=== PATIENT | female | born 1995 | race Caucasian/White ===

== ENCOUNTER 2018-10-21 08:13 | Emergency (ER) | payer BC, OTHER ==
[~2018-10-21] VITALS: Ht 175.3 cm; Wt 100.3 kg
--- NOTE | 2018-10-21 08:50 | NUR ---
LOOP PULLER: PT TO ROOM FROM LOBBY
--- NOTE | 2018-10-21 08:55 | NUR ---
ASSUMED CARE AT THIS TIME. PT. IS A & O X 4 WITH C/O A 2 MONTH HX OF MANN PAIN WHICH SHE STATES SHE HAS BEEN SEEN IN THE ER FOR AND HAD AN MRA DONE. PT. STATES THE RESULTS WERE NORMAL. PT. STATES SHE WAS ALSO SEEN AT URGENT CARE FOR THE SAME AND SPINAL TAP WAS DONE WHICH RESULTS WERE NORMAL STATED BY HER. PT. 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 PT.'S PUPILS ARE PERRLA. LUNGS ARE CTA. HAND GRASPS ARE EQUAL AND STRONG. DP'S ARE EQUAL AND STRONG. PT. IS PINK, WARM AND DRY. ABD. IS SOFT AND NON-TENDER WITH BS + X 4 QUADS. PT. PULSES ARE +2 THROUGHOUT. IV ACCESS ESTABLISHED. PT. MEDICATED ORDERED. SIDERAILS REMAIN UP X [address]
[2018-10-21] MEDS ORDERED: METOCLOPRAMIDE 5 MG/ML, 2ML IVPush ONE (09:30)
[2018-10-21] MEDS ORDERED: KETOROLAC 30 MG/1 ML IVPush ONE (09:30)
[2018-10-21] MEDS ORDERED: SODIUM CHLORIDE 0.9% 1,000ML IVBOLUS ONE (09:30)
[2018-10-21] MEDS ORDERED: DIPHENHYDRAMINE 50 MG/ML, 1ML IVPush ONE (09:30)
[2018-10-21] MEDS ORDERED: SODIUM CHLORIDE FLUSH 10ML SYR IVF ONE (09:30)
[2018-10-21] MEDS ORDERED: KETOROLAC 30 MG/1 ML ONE (09:43)
[2018-10-21] MEDS ORDERED: DIPHENHYDRAMINE 50 MG/ML, 1ML ONE (09:43)
[2018-10-21] MEDS ORDERED: METOCLOPRAMIDE 5 MG/ML, 2ML ONE (09:44)
--- NOTE | 2018-10-21 09:51 | NUR ---
PT. STATES HER PAIN DECREASED FROM A 10 TO A 7 AFTER THE MEDICATIONS FOR PAIN WERE GIVEN, SEE MAR. PT. IS RESTING WITH THE HOB ELEVATED GREATER THAN 30 DEGREES. PT.'S PCXR WAS DONE AND LABS WERE OBTAINED FROM THE PT.'S IV START. PT. IS RESTING WITH THE BP CUFF AND PULSE OX IN PLACE. PT. IS IN A POSITION OF COMFORT. LIGHTS DIMMED. SIDERAILS REMAIN UP X 2 WITH THE CALL LIGHT IN REACH. VSS. PT. REPORT WAS GIVEN TO RAHUL NELSON.
[2018-10-21 09:57] LABS: BASOPHILS # (AUTO) 0.03 x10^3/uL (0-0.1); BASOPHILS % (AUTO) 1 % (0-1); EOSINOPHILS # (AUTO) 0.04 x10^3/uL (0-0.4); EOSINOPHILS % (AUTO) 1 % (1-7); LYMPHOCYTES # (AUTO) 1.11 x10^3/uL (1-3.4); LYMPHOCYTES % (AUTO) 23 % (22-44); MD NO; MEAN CORPUSCULAR HEMOGLOBIN 29.1 pg (27.0-34.8); MEAN CORPUSCULAR HGB CONC 32.4 g/dL (32.4-35.8); MEAN PLATELET VOLUME 13.4 fL (7.4-10.4); MONOCYTES # (AUTO) 0.68 x10^3/uL (0.2-0.8); MONOCYTES % (AUTO) 14 % (2-9); NEUTROPHILS # (AUTO) 2.92 x10^3/uL (1.8-6.8); NEUTROPHILS % (AUTO) 61 % (42-75); PLATELET COUNT 127 x10^3/uL (130-400); RED BLOOD COUNT 4.72 x10^6/uL (3.82-5.3); RED CELL DISTRIBUTION WIDTH 13.3 % (9.6-15.2)
[2018-10-21 10:09] LABS: ALBUMIN 3.7 g/dL (3.4-5.0); ANION GAP 5 mmol/L (5-15); CALCIUM 8.4 mg/dL (8.5-10.1); CHLORIDE 112 mmol/L (98-107); CREATININE 0.75 mg/dL (0.55-1.02)
[2018-10-21 10:35] LABS: MICROSCOPIC NOT IND
[2018-10-21 10:38] LABS: ALANINE AMINOTRANSFERASE 55 U/L (12-78); ALKALINE PHOSPHATASE 76 U/L (45-117); BILIRUBIN,TOTAL 0.2 mg/dL (0.2-1.0); TOTAL PROTEIN 7.8 g/dL (6.4-8.2)
[2018-10-21 10:43] LABS: CULTURE INDICATED? NO
[2018-10-21 11:22] VITALS: BP 102/53
--- NOTE | 2018-10-21 11:22 | NUR ---
MANN IMPROVED SINCE MEDICATED FOR SAME AND TOLERATING PO CHALLENGE
[2018-10-21] MEDS ORDERED: DEXAMETHASONE 4 MG/ML, 1ML ONE (11:26)
[2018-10-21] MEDS ORDERED: DEXAMETHASONE 4 MG/ML, 1ML IVPush ONE (11:30)
== END 2018-10-21 12:32 | disposition home or self-care (01) ==
LOC: ED 10:05
DX: G89.29 Other chronic pain (principal); R51 Headache; R42 Dizziness and giddiness
CPT/HCPCS: 36415; 71045; 80053; 81003; 84703; 85025; 93005; 96361; 96374; 96375; 99284; J1100; J1200; J1885; J2765; J7030

== ENCOUNTER 2019-12-25 01:37 | Emergency (ER) | payer BC, OTHER ==
[~2019-12-25] VITALS: Ht 177.8 cm; Wt 105.0 kg
[2019-12-25] MEDS ORDERED: SERT100T32 PO (01:45)
--- NOTE | 2019-12-25 01:46 | NUR ---
pt ambulated back to room with a smooth and steady gait.
--- NOTE | 2019-12-25 01:55 | NUR ---
24/. Abd pain, nausea, diarrhea x3 since yesterday around 1600. Denies vomiting. Denies drug use. Upper abd pain.
--- NOTE | 2019-12-25 01:57 | NUR ---
Pt unable to urinate at this time.
[2019-12-25] MEDS ORDERED: MORPHINE SULFATE 4 MG/ML, 1ML ONE ×2 (02:00→03:38)
[2019-12-25] MEDS ORDERED: ONDANSETRON 2MG/ML, 2ML IVPush ONE (02:00)
[2019-12-25] MEDS ORDERED: ONDANSETRON 2MG/ML, 2ML ONE (02:00)
[2019-12-25] MEDS: MORPHINE SULFATE 4 MG/ML, 1ML IVPush PRN ×2 (02:06→03:40)
[2019-12-25 02:10] LABS: MEAN CORPUSCULAR HEMOGLOBIN 25.6 pg (27.0-34.8); MEAN CORPUSCULAR HGB CONC 31.6 g/dL (32.4-35.8); MEAN PLATELET VOLUME 12.9 fL (7.4-10.4); PLATELET COUNT 134 x10^3/uL (130-400); RED BLOOD COUNT 4.71 x10^6/uL (3.82-5.3)
[2019-12-25 02:21] LABS: ALANINE AMINOTRANSFERASE 44 U/L (12-78); ALBUMIN 3.3 g/dL (3.4-5.0); ANION GAP 8 mmol/L (5-15); CALCIUM 8.2 mg/dL (8.5-10.1); CHLORIDE 106 mmol/L (98-107); CREATININE 1.05 mg/dL (0.55-1.02)
[2019-12-25 02:26] LABS: ALKALINE PHOSPHATASE 74 U/L (45-117); BILIRUBIN,TOTAL 0.5 mg/dL (0.2-1.0); TOTAL PROTEIN 7.4 g/dL (6.4-8.2)
[2019-12-25 02:47] LABS: BASOPHILS # (AUTO) 0.01 x10^3/uL (0-0.1); BASOPHILS % (AUTO) 0 % (0-1); EOSINOPHILS # (AUTO) 0.03 x10^3/uL (0-0.4); EOSINOPHILS % (AUTO) 0 % (1-7); LYMPHOCYTES # (AUTO) 1.24 x10^3/uL (1-3.4); LYMPHOCYTES % (AUTO) 12 % (22-44); MD SCAN; MONOCYTES % (AUTO) 5 % (2-9); NEUTROPHILS # (AUTO) 8.34 x10^3/uL (1.8-6.8); NEUTROPHILS % (AUTO) 83 % (42-75)
--- NOTE | 2019-12-25 02:47 | NUR ---
Pt pain improved to 5/10 after pain medications. Pt will call when she can provide a urine sample.
--- NOTE | 2019-12-25 03:36 | NUR ---
pt medicated per mar for pain. pt nad, no other changes in condition. vss. wctm.
[2019-12-25 04:08] VITALS: BP 123/77
--- NOTE | 2019-12-25 04:09 | NUR ---
task rn: Patient given discharge instructions and they have confirmed that they understand the instructions. Patient ambulatory with steady gait. provided work note per request, nad, denies additional needs or questions at this time. no pt belongings left in room after dc.
== END 2019-12-25 04:10 | disposition home or self-care (01) ==
LOC: ED 02:45
DX: R10.31 Right lower quadrant pain (principal); R10.32 Left lower quadrant pain; R10.13 Epigastric pain; R19.7 Diarrhea, unspecified; R11.0 Nausea
CPT/HCPCS: 36415; 76700; 80053; 83690; 84703; 85025; 96374; 96375; 96376; 99284; J2270; J2405

== ENCOUNTER 2020-01-04 17:43 | Emergency (ER) | payer OTHER ==
[~2020-01-04] VITALS: Ht 177.8 cm; Wt 105.3 kg
[~2020-01-04 17:43] MED LIST: SERT100T32 PO
[2020-01-04] MEDS ORDERED: MORPHINE SULFATE 4 MG/ML, 1ML ONE (18:25)
[2020-01-04] MEDS ORDERED: ONDANSETRON 2MG/ML, 2ML ONE (18:25)
[2020-01-04] MEDS ORDERED: ONDANSETRON 2MG/ML, 2ML IVPush ONE (18:30)
[2020-01-04] MEDS ORDERED: MORPHINE SULFATE 4 MG/ML, 1ML IVPush PRN (18:30)
[2020-01-04] MEDS ORDERED: SODIUM CHLORIDE FLUSH 10ML SYR IVF ONE (18:30)
--- NOTE | 2020-01-04 18:40 | NUR ---
to ed from home rlq abd pain worse on palp seen her x3. pa in room, meds per mar, piv, labs and ua to lab. vss call diallo in reach. as
[2020-01-04 18:59] LABS: ALBUMIN 2.8 g/dL (3.4-5.0); ANION GAP 6 mmol/L (5-15); CALCIUM 7.9 mg/dL (8.5-10.1); CHLORIDE 108 mmol/L (98-107)
[2020-01-04 19:00] LABS: MICROSCOPIC AUTO
[2020-01-04 19:07] LABS: ALKALINE PHOSPHATASE 80 U/L (45-117); BILIRUBIN,TOTAL 0.2 mg/dL (0.2-1.0); CREATININE 0.91 mg/dL (0.55-1.02)
[2020-01-04 19:09] LABS: BASOPHILS % (AUTO) 1 % (0-1); EOSINOPHILS % (AUTO) 1 % (1-7); LYMPHOCYTES % (AUTO) 20 % (22-44); MEAN CORPUSCULAR HEMOGLOBIN 26.9 pg (27.0-34.8); MEAN CORPUSCULAR HGB CONC 34.2 g/dL (32.4-35.8); MONOCYTES % (AUTO) 5 % (2-9); NEUTROPHILS % (AUTO) 73 % (42-75); PLATELET COUNT 297 x10^3/uL (130-400); RED BLOOD COUNT 4.28 x10^6/uL (3.82-5.3); RED CELL DISTRIBUTION WIDTH 16.7 % (9.6-15.2)
[2020-01-04 19:21] VITALS: BP 99/62
[2020-01-04 19:22] LABS: MD NO
--- NOTE | 2020-01-04 19:22 | NUR ---
still c/o pain but bp marginal, explained to pt, aware. labs pending. as
[2020-01-04 20:22] LABS: ALANINE AMINOTRANSFERASE 43 U/L (12-78)
[2020-01-04 20:23] LABS: TOTAL PROTEIN 7.6 g/dL (6.4-8.2)
== END 2020-01-04 20:28 | disposition home or self-care (01) ==
LOC: ED 18:17
DX: N30.00 Acute cystitis without hematuria (principal)
CPT/HCPCS: 36415; 80053; 81001; 83690; 84703; 85025; 87086; 96374; 96375; 99284; J2270; J2405

== ENCOUNTER → 2020-01-07 | Outpatient (CLI) | payer OTHER ==
[~2020-01-07] MED LIST changes: +SINCALIDE (KINEVAC) 5 MCG ONE
== END | disposition home or self-care (01) ==
LOC: RAD 12:13
PROVIDERS: ATTEND Physician Assistant
DX: R10.11 Right upper quadrant pain (principal)
CPT/HCPCS: 78227; A9503; J2805

== ENCOUNTER 2020-01-16 06:03 | Day surgery (SDC) | payer OTHER ==
[~2020-01-16] VITALS: Ht 177.8 cm; Wt 104.1 kg
[~2020-01-16 06:03] MED LIST changes: -SINCALIDE (KINEVAC) 5 MCG ONE
[2020-01-16 06:42] VITALS: BP 111/99
[2020-01-16] MEDS ORDERED: BUPIVACAINE/PF 0.5% ONE (06:46)
[2020-01-16] MEDS ORDERED: EPINEPHRINE 1 MG/ML, 1ML ONE (06:46)
[2020-01-16] MEDS ORDERED: CHLORHEXIDINE 15 ML UDC MM ONE (07:00)
[2020-01-16] MEDS ORDERED: LACTATED RINGERS 1,000 ML IV SCH (07:00)
[2020-01-16 07:16] LABS: HCG UR SG 1.031 (1.003-1.030)
[2020-01-16] MEDS ORDERED: MIDAZOLAM 1 MG/ML, 2ML ONE (08:49)
[2020-01-16] MEDS ORDERED: FENTANYL PF 250 MCG/5ML ONE ×2 (08:49→10:18)
[2020-01-16] MEDS ORDERED: SUCCINYLCHOLINE 20 MG/ML, 10ML ONE (08:52)
[2020-01-16] MEDS ORDERED: ROCURONIUM 10MG/ML,5ML ONE (08:52)
[2020-01-16] MEDS ORDERED: MILRINONE 1 MG/ML, 20ML ONE (08:52)
[2020-01-16] MEDS ORDERED: CEFAZOLIN 1,000 MG ONE (08:52)
[2020-01-16] MEDS ORDERED: hydrALAzine 20 MG/ML, 1ML IV PRN (09:30)
[2020-01-16] MEDS ORDERED: OXYcodone 5 MG/5 ML ORAL.SOL UDC PO PRN (09:30)
[2020-01-16] MEDS ORDERED: HYDROmorphone 1 MG/ML, 1ML INJ IVPush PRN (09:30)
[2020-01-16] MEDS ORDERED: ACETAMINOPHEN 325 MG TABLET PO PRN (09:30)
[2020-01-16] MEDS ORDERED: PROMETHAZINE 25 MG SUPP PR PRN (09:30)
[2020-01-16] MEDS ORDERED: LABETALOL 5MG/ML, 20ML IV PRN (09:30)
[2020-01-16] MEDS ORDERED: PROMETHAZINE 25 MG/ML, 1ML ONE (09:58)
[2020-01-16] MEDS ORDERED: FENTANYL PF 100 MCG/2ML ONE (09:58)
[2020-01-16] MEDS ORDERED: OXYcodone 5 MG/5 ML ORAL.SOL UDC ONE (09:59)
[2020-01-16] MEDS ORDERED: ACETAMINOPHEN 650 MG/20.3 ML UDC ONE (09:59)
[2020-01-16] MEDS ORDERED: PROMETHAZINE 25 MG/ML, 1ML IVPush PRN (10:00)
[2020-01-16] MEDS: FENTANYL PF 100 MCG/2ML IV PRN ×2 (10:05→10:10)
[2020-01-16] MEDS ORDERED: PROPOFOL 50 ML ONE (10:08)
== END 2020-01-16 12:00 | disposition home or self-care (01) ==
LOC: OUT 06:03
PROVIDERS: ATTEND Surgery
DX: K82.8 Other specified diseases of gallbladder (principal); Z20.828 Contact with and (suspected) exposure to other viral communicable diseases; K81.1 Chronic cholecystitis; K76.0 Fatty (change of) liver, not elsewhere classified; F41.9 Anxiety disorder, unspecified; G43.909 Migraine, unspecified, not intractable, without status migrainosus; Z79.899 Other long term (current) drug therapy; Z83.3 Family history of diabetes mellitus; Z82.49 Family history of ischemic heart disease and other diseases of the circulatory system
CPT/HCPCS: 36415; 47562; 81025; 87635; 88304; J0171; J0330; J0690; J2250; J2260; J2550; J2704; J3010; J7120

== ENCOUNTER 2020-08-23 22:38 | Emergency (ER) | payer SELFPAY ==
[~2020-08-23] VITALS: Ht 177.8 cm; Wt 115.0 kg
[2020-08-24] MEDS ORDERED: ONDANSETRON 2MG/ML, 2ML ONE (00:51)
[2020-08-24] MEDS ORDERED: MORPHINE SULFATE 4 MG/ML, 1ML ONE (00:52)
[2020-08-24] MEDS ORDERED: MORPHINE SULFATE 4 MG/ML, 1ML IVPush ONE (01:00)
[2020-08-24] MEDS ORDERED: ONDANSETRON 2MG/ML, 2ML IVPush ONE (01:00)
--- NOTE | 2020-08-24 01:00 | NUR ---
PT ARRIVED WITH COMPLAINTS OF SHARP L SIDED AB PAIN THAT 'FEELS LIKE IT'S LABOR PAINS BUT I KNOW ITS NOT'. PT CONNECTED TO BP AND O2 MONITORS, SIDE RAILS UP X2, IV PLACED, PT TOLERATED WELL. PT A&O X4, VSS, NADN.
[2020-08-24 01:21] LABS: BASOPHILS % (AUTO) 1 % (0-1); EOSINOPHILS % (AUTO) 1 % (1-7); LYMPHOCYTES % (AUTO) 29 % (22-44); MEAN CORPUSCULAR HGB CONC 32.9 g/dL (32.4-35.8); MEAN PLATELET VOLUME 11.1 fL (7.4-10.4); MONOCYTES % (AUTO) 7 % (2-9); NEUTROPHILS % (AUTO) 63 % (42-75); PLATELET COUNT 142 x10^3/uL (130-400); RED BLOOD COUNT 4.67 x10^6/uL (3.82-5.3); RED CELL DISTRIBUTION WIDTH 16.3 % (9.6-15.2)
[2020-08-24 01:22] LABS: MD NO
[2020-08-24 01:30] LABS: ALBUMIN 3.7 g/dL (3.4-5.0); ANION GAP 6 mmol/L (5-15); CALCIUM 8.5 mg/dL (8.5-10.1); CHLORIDE 108 mmol/L (98-107)
[2020-08-24 02:06] LABS: MICROSCOPIC AUTO
--- NOTE | 2020-08-24 03:00 | NUR ---
EMERSON VASQUEZ AT [facility] TO DISCUSS POC
[2020-08-24 03:02] VITALS: BP 119/77
== END 2020-08-24 03:43 | disposition home or self-care (01) ==
LOC: ED 08-24 01:45
DX: N83.01 Follicular cyst of right ovary (principal); N88.8 Other specified noninflammatory disorders of cervix uteri
CPT/HCPCS: 36415; 76830; 80048; 81001; 82040; 84703; 85025; 87086; 96374; 96375; 99284; J2270; J2405